=== PATIENT | male | born 1990 | race Caucasian/White ===

== ENCOUNTER 2022-05-27 05:03 | Emergency (ER) | payer OTHER, SELFPAY ==
[2022-05-27] MEDS ORDERED: CEFAZOLIN 2 GM VIAL ONE (05:16)
[2022-05-27] MEDS ORDERED: Morphine 4 MG/ML VIAL ONE (05:16)
[2022-05-27] MEDS ORDERED: Ondansetron PF 4 MG/2 ML Vial ONE ×2 (05:16→05:38)
[2022-05-27] MEDS ORDERED: Boostrix 0.5 ML (Tdap) VIAL ONE (05:16)
[2022-05-27 05:59] LABS: #Eosinphils 0.1 thou/uL (0.0-0.7); #Lymphocytes 1.7 thou/uL (1.20-3.40); #Monocytes 0.8 thou/uL (0.11-0.59); #Neutrophils 12.2 thou/uL (1.40-6.50); %Basophils 0.1 % (0.0-1.0); %Eosinophils 0.9 % (0.0-10.0); %Lymphocytes 11.6 % (21.0-51.0); %Monocytes 5.3 % (0.0-10.0); %Neutrophils 82.1 % (42.0-75.0); Hemoglobin 13.9 g/dL (14.0-18.0); Mean Corpuscular HGB CONC 33.7 g/dL (32.0-36.0); Mean Corpuscular Hemoglobin 31.6 pg (27.0-31.0); Mean Corpuscular Volume 93.8 fL (78.0-98.0); Platelet Count 300 thou/uL (130-400); RBC Distribution Width 11.7 % (11.5-14.5); Red Blood Cell (RBC) Count 4.41 mill/uL (4.70-6.10); White Blood Cell (WBC) Count 14.9 thou/uL (4.8-10.8)
[2022-05-27] MEDS ORDERED: Ketamine 50 MG/ML (10ML VIAL) ONE (06:01)
[2022-05-27] MEDS ORDERED: Lidocaine 1% PF 5 ML VIAL ONE (06:14)
[2022-05-27 06:21] LABS: ALT (SGPT) 16 U/L (8-55); AST (SGOT) 27 U/L (5-34); Albumin 4.2 g/dL (3.5-5.0); Alcohol 211 mg/dL (Less than 10); Alkaline Phosphatase 64 U/L (40-110); Anion Gap 14 mmol/L (10-20); BUN (Urea Nitrogen) 15 mg/dL (8.9-20.6); Bilirubin, Total 0.4 mg/dL (0.2-1.2); Calc. Creatinine Clearance 0 mL/min (70-130); Calcium 8.5 mg/dL (7.8-10.44); Carbon Dioxide 21 mmol/L (22-29); Chloride 108 mmol/L (98-107); Estimated GFR 122; Globulin 2.4 g/dL (2.4-3.5); Glucose 86 mg/dL (70-105); Lipase 11 U/L (8-78); Potassium 3.5 mmol/L (3.5-5.1); Protein, Total 6.6 g/dL (6.0-8.3); Sodium 139 mmol/L (136-145)
[2022-05-27] MEDS ORDERED: Iopamidol 370 76% 100 ML VIAL ONE (09:08)
== END 2022-05-27 09:55 | disposition home or self-care (01) ==
LOC: ERS 05:03
DX: S82.831A Other fracture of upper and lower end of right fibula, initial encounter for closed fracture (principal); S01.01XA Laceration without foreign body of scalp, initial encounter; S01.81XA Laceration without foreign body of other part of head, initial encounter; F10.129 Alcohol abuse with intoxication, unspecified; V47.5XXA Car driver injured in collision with fixed or stationary object in traffic accident, initial encounter
CPT/HCPCS: 12002; 36415; 70450; 70486; 71260; 72125; 74177; 80053; 80307; 83690; 85025; 90471; 90715; 96374; 96375; G0390; J0690; J2270; J2405; Q9967

== ENCOUNTER 2022-05-28 19:54 | Emergency (ER) | payer OTHER, SELFPAY | END 2022-05-28 20:45 | disposition home or self-care (01) | LOC: ERS 19:54 | DX: S82.831A Other fracture of upper and lower end of right fibula, initial encounter for closed fracture (principal); S01.01XA Laceration without foreign body of scalp, initial encounter; V89.2XXA Person injured in unspecified motor-vehicle accident, traffic, initial encounter | CPT/HCPCS: 99283 ==